=== PATIENT | male | born 1965 | race Caucasian/White ===

== ENCOUNTER → 2017-07-19 | Outpatient (CLI) | payer OTHER | LOC: FCPNEURO 23:18 | PROVIDERS: ATTEND Psychiatry & Neurology Sleep Medicine | DX: G47.33 Obstructive sleep apnea (adult) (pediatric) (principal); G47.61 Periodic limb movement disorder; I49.5 Sick sinus syndrome ==

== ENCOUNTER 2017-08-08 06:24 | Observation (INO) | payer OTHER ==
--- NOTE | 2017-08-08 06:37 | CPEKG ---
Heart Rate: 71 RR Interval: 845 P-R Interval: 216 QRSD Interval: 86 QT Interval: 408 QTC Interval: 444 P [place]: 83 QRS [place]: 56 T Wave [place]: 30 EKG Severity - ABNORMAL ECG - EKG Impression: SINUS RHYTHM EKG Impression: FIRST DEGREE AV BLOCK Electronically Signed By: Ronald Brown 08-Aug-2017 08:02:44
--- NOTE | 2017-08-08 07:04 | EDPHY ---
H & P Time Seen by Provider: 08/08/17 06:59 HPI/ROS: Chief complaint. Chest pain HPI. 51-year-old male presents to emergency department with chest discomfort. He has recently been diagnosed with sick sinus syndrome on a sleep apnea study and was diagnosed with first-degree AV block and heart rate down into the 30s at night. He wakes at night at about 3:00 a.m. with chest tightness and heart pounding. He is unable to sleep secondary to this. He then feels tired during the day and then if he lies down for a nap in the afternoon he has further symptoms. He describes as heavy feeling in mid chest radiating to neck and left arm. While he has had the symptoms for a while symptoms have been worse the last 4-5 days. Really only occurs at night or with Welch. However he does have nausea and he has lightheaded. His symptoms are not worse with exertion or breathing. He has no sense of shortness of breath. No recent fever or cough. No unusual leg symptoms or recent travel. He has have septal surgery to help with his sleep apnea and CPAP ROS Constitutional. no fever/chills, no weakness Eyes. no problems with vision ENT. no sore throat, no nasal drainage Cardiovascular. Chest pressure Respiratory. no shortness of breath, no cough Abdominal. No abdominal pain but nausea . no problems urinating MS. no calf pain/swelling, no neck/back pain, no joint pain Skin. no rash Lymph. no swollen glands Neuro. Dizziness Past Medical/Surgical History: Past medical history significant for recently diagnosed sick sinus syndrome, sleep apnea using CPAP. Septoplasty Mom has coronary artery disease Social History: , nonsmoker, no alcohol Smoking Status: Never smoked Physical Exam: General Appearance: Alert well-developed male mild distress vital signs are stable Eyes: Pupils equal and round no pallor or injection. ENT, Mouth: Mucous membranes are moist. Respiratory: There are no retractions, lungs are clear to auscultation. Cardiovascular: Regular rate and rhythm. Gastrointestinal: Abdomen is soft and nontender, no masses, bowel sounds normal. Neurological: Awake and alert, sensory and motor exams grossly normal. Skin: Warm and dry, no rashes. Musculoskeletal: Neck is supple nontender. Extremities symmetrical, full range of motion. Psychiatric: Patient is oriented X 3, there is no agitation. Constitutional: Initial Vital Signs Temperature (C) 36.8 C 08/08/17 06:27 Heart Rate 65 08/08/17 06:27 Respiratory Rate 20 08/08/17 06:27 Blood Pressure 150/86 H 08/08/17 06:27 O2 Sat (%) 95 08/08/17 06:27 O2 Delivery Mode Room Air Allergies/Adverse Reactions: No Known Allergies Allergy (Unverified 08/08/17 08:31) Home Medications: Medication Instructions Recorded NK [No Known Home Meds] 08/08/17 Medical Decision Making - Diagnostics EKG Interpretation: EKG interpreted by me shows normal sinus rhythm with first-degree AV block. Normal axis. QRS is normal there is no significant ST elevation or depression. There is no arrhythmia. The rate is 71 Imaging Results: Imaging Impressions Chest X-Ray 08/08/17 07:04 Impression: Negative. One-view chest x-ray interpreted by me is normal Procedures: IV normal saline, monitor ED Course/Re-evaluation: Re-evaluation 8:15 a.m. patient is stable. The patient, his and I discussed imaging, EKG, lab results. We discussed treatment plan including recommendation for admission for further evaluation. They expressed understanding and agreement I consulted discussed case with Dr. mc Jenkins, hospitalist, who agrees to the admission I consulted and discussed the case with Dr. Davis, cardiology, who will see the patient in consultation Differential Diagnosis: Patient is having chest discomfort at night with palpitations lightheadedness and nausea. I am concerned about acute coronary syndrome. He was recently diagnosed with sick sinus syndrome and has recommendation for pacemaker. No evidence for pneumonia or pneumothorax. - Data Points Laboratory Results: Laboratory Results 08/08/17 06:38 08/08/17 06:38 08/08/17 08/08/17 06:38 06:38 WBC 5.08 10^3/uL 10^3/uL (3.80-9.50) RBC 4.74 10^6/uL 10^6/uL (4.40-6.38) Hgb 14.8 g/dL g/dL (13.7-17.5) Hct 44.1 % % (40.0-51.0) MCV 93.0 fL fL (81.5-99.8) MCH 31.2 pg pg (27.9-34.1) MCHC 33.6 g/dL g/dL (32.4-36.7) RDW 11.9 % % (11.5-15.2) Plt Count 222 10^3/uL 10^3/uL (150-400) MPV 10.9 fL fL (8.7-11.7) Neut % (Auto) 64.7 % % (39.3-74.2) Lymph % (Auto) 25.8 % % (15.0-45.0) Meigs % (Auto) 7.5 % % (4.5-13.0) Eos % (Auto) 1.0 % % (0.6-7.6) Baso % (Auto) 0.8 % % (0.3-1.7) Nucleat RBC Rel Count 0.0 % % (0.0-0.2) Absolute Neuts (auto) 3.29 10^3/uL 10^3/uL (1.70-6.50) Absolute Lymphs (auto) 1.31 10^3/uL 10^3/uL (1.00-3.00) Absolute Monos (auto) 0.38 10^3/uL 10^3/uL (0.30-0.80) Absolute Eos (auto) 0.05 10^3/uL 10^3/uL (0.03-0.40) Absolute Basos (auto) 0.04 10^3/uL 10^3/uL (0.02-0.10) Absolute Nucleated RBC 0.00 10^3/uL 10^3/uL (0-0.01) Immature Gran % 0.2 % % (0.0-1.1) Immature Gran # 0.01 10^3/uL 10^3/uL (0.00-0.10) Sodium 141 mEq/L mEq/L (134-144) Potassium 4.0 mEq/L mEq/L (3.5-5.2) Chloride 105 mEq/L mEq/L (97-110) Carbon Dioxide 24 mEq/l mEq/l (22-31) Anion Gap 12 mEq/L mEq/L (8-16) BUN 22 mg/dL mg/dL (7-23) Creatinine 0.8 mg/dL mg/dL (0.7-1.3) Estimated GFR > 60 Glucose 84 mg/dL mg/dL (70-100) Calcium 9.4 mg/dL mg/dL (8.5-10.4) Troponin I < 0.012 ng/mL ng/mL (0.000-0.034) Departure - Departure Disposition: [facility] Inpatient Acute Clinical Impression: Chest pain Qualifiers: Chest pain type: unspecified Qualified Code(s): R07.9 - Chest pain, unspecified Condition: Fair Referrals: YAHAIRA WALKER [Other] - As per Instructions
[2017-08-08 07:09] LABS: % IMMATURE GRANULYOCYTES 0.2 % (0.0-1.1); ABSOLUTE IMMATURE GRANULOCYTES 0.01 10^3/uL (0.00-0.10); ADD DIFF? NO; ADD MORPH? NO; ADD SCAN? NO; ATYPICAL LYMPHOCYTE FLAG 0 (0-99); FRAGMENT RBC FLAG 0 (0-99); HEMATOCRIT 44.1 % (40.0-51.0); HEMOGLOBIN 14.8 g/dL (13.7-17.5); LEFT SHIFT FLG 0 (0-99); LIPEMIA HEMOLYSIS FLAG 80 (0-99); MEAN CELL HEMOGLOBIN 31.2 pg (27.9-34.1); MEAN CELL HEMOGLOBIN CONCENTR. 33.6 g/dL (32.4-36.7); MEAN PLATELET VOLUME 10.9 fL (8.7-11.7); PLATELET CLUMPS FLAG 0 (0-99); PLATELET COUNT 222 10^3/uL (150-400); RED BLOOD CELL COUNT 4.74 10^6/uL (4.40-6.38); RED CELL DISTRIBUTION WIDTH 11.9 % (11.5-15.2)
[2017-08-08 07:15] LABS: ANION GAP 12 mEq/L (8-16); CALCIUM 9.4 mg/dL (8.5-10.4); CARBON DIOXIDE 24 mEq/l (22-31); CHLORIDE 105 mEq/L (97-110); CREATININE 0.8 mg/dL (0.7-1.3); GLOMERULAR FILTRATION RATE > 60; GLUCOSE 84 mg/dL (70-100); SODIUM 141 mEq/L (134-144)
[2017-08-08 07:27] LABS: TROPONIN I < 0.012 ng/mL (0.000-0.034)
[2017-08-08] MEDS ORDERED: ONDANSETRON 4 MG/2 ML VIAL IVP PRN (08:34)
[2017-08-08] MEDS ORDERED: ACETAMINOPHEN 325 MG TAB PO PRN (08:34)
[2017-08-08] MEDS ORDERED: ONDANSETRON DISINTEGRATING 4 MG TAB PO PRN (08:34)
[2017-08-08] MEDS: PANTOPRAZOLE SODIUM 40 MG TAB PO SCH (11:56)
--- NOTE | 2017-08-08 12:33 | ASMTCMCOM ---
CM Note CM Note Notes: Chart reviewed, Patient should have no needs at discharge. CM available to follow should needs arise. Date Signed: 08/08/2017 12:32 PM Electronically Signed By:Yen Dubois RN
--- NOTE | 2017-08-08 13:53 | ECHO ---
[email or web address] [address] [address] Main: [phone] Fax: Transthoracic Echocardiogram Name: RAMON SONG MR#: [id number] Study Date: 08/08/2017 Study Time: 11:15 AM Date of : 1965 Age: 51 year(s) Height: 188 cm (74 in.) Weight: 79.38 kg (175 lb.) BSA: 2.05 m2 Gender: Male Examination: Echo Indication: Chest Pain Image Quality: Contrast: Requested by: Yoly Lynch BP: 134 mmHg/83 mmHg Heart Rate: Rhythm: Indication: Chest Pain Procedure Staff Glass Worker: Nathalia Daley Reading Physician: Mike Davis Requesting Provider: Conclusions: Normal size left ventricle. The ejection fraction is estimated to be 60-65 %. The right atrium is mildly dilated. The mitral valve is normal in appearance. Trivial mitral valve regurgitation. The aortic valve is tri-leaflet. Normal aortic valve function. The pulmonary artery pressure could not be adequately estimated. Measurements: Chambers Valvular Assessment AV/MV Valvular Assessment TV/PV Normal Normal Normal Name Value Range Name Value Range Name Value Range Ao Mikayla (MM): 3.5 cm (2.2 cm-3.7 AV Vmax: 1.19 m/s (1 m/s-1.7 cm) m/s) IVSd (2D): 1.2 cm (0.6 cm-1.1 AV maxP mmHg ( - ) cm) MV E Vmax: 0.56 m/s ( - ) LVDd (2D): 4.9 cm (4.2 cm-5.9 MV A Vmax: 0.38 m/s ( - ) cm) MV E/A: 1.47 ( - ) LVDs (2D): 3.4 cm (2.1 cm-4 cm) LVPWd (2D): 1.0 cm (0.6 cm-1 cm) LVEF (MOD4): 70 % (>=55 %) EF Range: 60-65 % Continued Measurements: Chambers Valvular Assessment AV/MV Name Value Name Value Patient: RAMON SONG Study Date: 08/08/2017 Page 1 of 2 11:15 AM LADs: 3.7 cm MV E/E' Septal: 6.10 LADs Lon.5 cm MV E/E' Lateral: 4.60 LA Area: 14.5 cm2 Findings: Left Ventricle: Normal size left ventricle. Normal global systolic LV function. The ejection fraction is estimated to be 60-65 %. Right Ventricle: Normal size right ventricle. Left Atrium: The left atrium is normal in size. Right Atrium: The right atrium is mildly dilated. Mitral Valve: The mitral valve is normal in appearance. Trivial mitral valve regurgitation. Aortic Valve: The aortic valve is tri-leaflet. Normal aortic valve function. Tricuspid Valve: The tricuspid valve appears normal. Mild tricuspid regurgitation is present. Pulmonic Valve: The pulmonic valve is normal in appearance. Pericardium: No pericardial effusion. (No Signature Object) Patient: RAMON SONG Study Date: 08/08/2017 Page 2 of 2 11:15 AM [id number]
--- NOTE | 2017-08-08 14:46 | GCON ---
[f rep st] CONSULTATION DATE OF CONSULTATION: 08/08/2017 CHIEF COMPLAINT: I have been asked by Dr. Brown to evaluate this patient with a chief complaint of palpitations. HISTORY OF PRESENT ILLNESS: Patient is a 51-year-old gentleman with limited past medical history, wh o presents with a chief complaint of palpitations. Patient was in his usual state of health until ap proximately 3 years prior to admission when he began to experience episodes of palpitations. Patient reports he would fall asleep and sleep for approximately 3-4 hours when he would wake up with a forc eful beating of his heart. The forceful beating of his heart was associated with some discomfort in his upper chest extending up into his neck. When he palpates his pulse, he notices that it feels lik e a skipped beat. Patient would be able to fall back to sleep and would experience subsequent episod es. His symptoms have continued intermittently since this time. Patient remains active, exercising 3 times a week for approximately 1 hour each time. Patient denies symptoms of chest pain or signific ant dyspnea with this activity. Three years ago, he underwent a cardiology evaluation for his sympto ms. Workup at that time included an echocardiogram, stress test, and Holter monitor. Workup was unr emarkable per report; however, patient was told to get a sleep study done and look for sleep apnea. At that time, he did have a sleep study which was positive, and patient did undergo therapy with the CPAP machine. Recently he underwent a repeat sleep study demonstrating no significant obstructive sl eep apnea; however, patient was noted to have some variation in his heart rate. During sleep raising concern for potential sick sinus syndrome as well as premature junctional complexes. We have been c onsulted to help in the further management of this patient. Patient denies a history of hypertension , hyperlipidemia, tobacco use, or early family history of coronary artery disease. He remains modera tely active as noted above without symptoms other than his nocturnal episodes. PAST MEDICAL HISTORY: 1. Obstructive sleep apnea. 2. Status post septoplasty. MEDICATIONS: None. ALLERGIES: No known drug allergies. 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 He does not smoke. He denies problems with alcoh ol. FAMILY HISTORY: Notable for coronary artery disease at a later age of onset. REVIEW OF SYSTEMS: 10-point review of systems is negative, except as noted in HPI. PHYSICAL EXAMINATION: GENERAL: Patient is resting comfortably in bed. He does not appear to be in acute distress. VITAL SIGNS: Temperature afebrile, pulse is 54, blood pressure 134/83, respiratory rate is 18, SaO2 is 93% on room air. HEENT: Normocephalic, atraumatic. Extraocular muscles intact. NECK: No JVD. No bruits. LUNGS: Clear to auscultation bilaterally. CARDIOVASCULAR: Regular ra te and rhythm. S1, S2. No murmurs, rubs, or gallops appreciated. ABDOMEN: Soft, nontender. Normo active bowel sounds. EXTREMITIES: No clubbing, cyanosis, or edema. SKIN: No evidence of rash. NE URO: Patient awake, alert, and oriented x3. LABORATORY: White blood cell count 5.08, hemoglobin 14.8, hematocrit 44.1, platelet count is 222. S odium 141, potassium 4.0, chloride 105, CO2 of 24, BUN 22, creatinine 0.8. Troponin within normal li mits x1. EKG demonstrates sinus rhythm, normal axis, 1st degree AV block, with a MI interval of 216, no signif icant ST or T-wave changes. ASSESSMENT AND PLAN: The patient is a 51-year-old gentleman with: 1. Obstructive sleep apnea. Patient has a history of obstructive sleep apnea. He started CPAP ther apy approximately 3 years ago. He recently discontinued CPAP therapy after his most recent sleep laurence dy. We will plan on reviewing the sleep study with Pulmonary to see if further treatment is necessar y. 2. Palpitations. Patient reports a 3 year history of palpitations awakening him from sleep. Palpita tions are described as a skipped or forceful beating of his heart. These are certainly suggestive of premature beats which was noted on his most recent sleep study. Will plan on obtaining his previous cardiovascular evaluation from Dr. Talavera that was done 3 years ago. We will also plan on trying t o obtain rhythm strips from his most recent sleep study to see if we can correlate these with his sub sequent symptoms. In the mean time, we will plan on monitoring patient on telemetry monitoring. /[id number]/MODL
--- NOTE | 2017-08-08 16:17 | GHP ---
[f rep st] HISTORY AND PHYSICAL DATE OF ADMISSION: 08/08/2017 CHIEF COMPLAINT: Chest pain. HISTORY OF PRESENT ILLNESS: This is a 51-year-old male with limited past medical history, to justin diamond diagnosed sleep apnea using CPAP at home, who presents with several episodes of chest pain associ ated with strong heartbeats that wake him up at night. Patient was undergoing outpatient polysomnogr aphy by Dr. Guadarrama and was told that he had what looked to be sick sinus syndrome on his EKG and was recommended to follow with Cardiology. He has scheduled the appointment but not seen the cardiologi st. 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 Patient reports that thi s is associated with some shortness of breath. Those symptoms will resolve if the patient rises and ambulates or exerts himself in any way. If the patient were to lay down in the middle of the day and take a nap, these symptoms would again recur, again being resolved by rising and ambulating. Patien t denies any nausea or vomiting. Denies diaphoresis, is quite active and can exercise without limita tion otherwise. PAST MEDICAL HISTORY: 1. Sleep apnea status post septal surgery last year for sleep apnea. 2. BPH status post surgical revision. SOCIAL HISTORY: Negative for tobacco, alcohol or illicit drugs. FAMILY HISTORY: Notable for heart disease in the mother but later in life. REVIEW OF SYSTEMS: A 10-point review of systems is negative with the exception of that reported in t he HPI. PHYSICAL EXAMINATION: VITAL SIGNS: Blood pressure 134/84, heart rate 54, respiratory rate 18, 93% o n room air, 36.8. GENERAL: This is a very healthy-appearing 51-year-old male in no acute distress. HEENT: Notable for moist mucous membranes. Eye exam is negative for any icterus. CARDIAC: Patient is regular rate and rhythm. No murmurs, gallops, or rubs. PULMONARY: Good respiratory effort. Blayne ar to auscultation bilaterally. GASTROINTESTINAL: Positive bowel sounds. ABDOMEN: Soft. MUSCULOSK ELETAL: Negative for any lower extremity edema. SKIN: Negative for any rashes. NEUROLOGIC: Patient is alert and oriented x3. PSYCHIATRIC: He is pleasant and cooperative on interview and examination. DATA: EKG, which I personally reviewed and interpreted, shows sinus rhythm, normal axis 1st degree A V block. Otherwise, no acute ST-T changes. Troponin is less than 0.012. CBC and BMP are normal. ASSESSMENT AND PLAN: This is a 51-year-old male presenting with chest pain. 1. Acute chest pain. The story is a little unusual for cardiac ischemia as the patient's pain is re lieved with exertion. Query whether the patient's symptoms are related to unusual dysrhythmia with P VCs or extended pauses with strong beats following, otherwise from his gastrointestinal symptoms such as gastroesophageal reflux disease or reflux. Will admit the patient for serial troponins and watch the patient closely on telemetry to further understand his recent diagnosis of sick sinus syndrome. I have ordered a transthoracic echocardiogram for evaluation of his intracardiac and pulmonic pressu res and Cardiology has been consulted from the emergency department. 2. Benign prostatic hypertrophy. Patient has no active symptoms and does not take medications. 3. Sleep apnea. Patient was told that he does not have sleep apnea and was instructed to discontinu e his use of CPAP after his most recent visit with Dr. Guadarrama. We will attempt to get the records f rom that visit to better understand patient's sleep physiology. 4. Prophylaxis with Lovenox. DIET: Cardiac. DISPOSITION: I expect in less than 2 midnights if the patient rules out overnight and appropriate di agnostic workup completed by Cardiology. I have discussed the case with the emergency room physician and patient will be triaged to the O for cardiac monitoring and care. /[id number]/MODL
[2017-08-08 19:54] VITALS: RESP 16
[2017-08-09 07:44] VITALS: TEMP 98.1
[2017-08-09] MEDS: PANTOPRAZOLE SODIUM 40 MG TAB PO SCH (08:02)
--- NOTE | 2017-08-09 09:16 | CPEKG ---
Heart Rate: 78 RR Interval: 769 QRSD Interval: 84 QT Interval: 388 QTC Interval: 442 QRS [place]: 72 T Wave [place]: -32 EKG Severity - ABNORMAL ECG - EKG Impression: ATRIAL FLUTTER, A-RATE 312 Electronically Signed By: Jean Paul Ye 09-Aug-2017 10:43:09
[2017-08-09] MEDS ORDERED: REGADENOSON 0.4 MG/5 ML SYR IVP ONE (09:46)
--- NOTE | 2017-08-09 11:13 | CPR ---
[f rep st] NONINVASIVE CARDIAC PROCEDURE REPORT DATE OF PROCEDURE: 08/09/2017 ORDERING PHYSICIAN: Yoly Lynch MD PROCEDURE: Lexiscan nuclear stress test. He had slight chest discomfort during an episode of atrial flutter just prior to testing. this was d iscussed with Dr. Davis before we initiated the test. Resting EKG shows atrial flutter with a ventricular rate of 78, atrial rate of 312. Watching on we observed him to go back into his regular sinus rhythm at a rate of 78. He had slight chest di scomfort while in atrial flutter; this subsided once he was in regular sinus rhythm. Resting blood p ressure 136/83, oxygen saturation 96% at rest, and intermittent atrial flutter. Once in regular sinu s rhythm, his baseline rate was 50. LEXISCAN PORTION: Lexiscan was injected rapidly, followed by saline flush. Cardiolite was then inje cted, followed by saline flush, heart rate 126 and regular, oxygen saturation 97%. He did flush and feel slight shortness of breath and chest heaviness with the injection. RECOVERY: His symptoms dissipated spontaneously during recovery. Blood pressure 146/90, oxygen satu ration 96%, and heart rate 90 and regular. He has no chest pain or shortness of breath at conclusion of test. At this time, he currently is stable for nuclear imaging. /[id number]/MODL
[2017-08-09 11:51] VITALS: BP 135/79; PULSE 67; O2SAT 95
--- NOTE | 2017-08-09 15:19 | PDCARCONS ---
Cardiology Consult Reason for Consult: Electrophysiology consultation for atrial flutter Chief Complaint: atrial flutter Requesting Physician: Dr. Mike Davis, Dr. Yoly Lynch History of Present Illness: 51-year-old male who has been complaining of palpitations for approximately 4- 5 years. Episodes are increasing in frequency. These are associated with chest discomfort, fatigue and decreased exercise tolerance. His arrhythmias often wake him up at night. He was admitted yesterday with similar symptoms. He had atrial flutter this morning which was documented on 12 lead EKG, this correlated with his symptoms that he has been reporting for the last 5 years. He has not had syncope. 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 He does not have chest discomfort with exertion. History Information - Allergies/Home Medication List Allergies/Adverse Reactions: No Known Allergies Allergy (Unverified 08/08/17 08:31) Home Medications: NK [No Known Home Meds] 08/08/17 [Last Taken Unknown] I have personally reviewed and updated: family history, medical history, social history, surgical history Past Medical History: - Past Medical History no pertinent PMH Additional medical history: sleep apnea - Social History Smoking Status: Never smoked Alcohol Use: Occasionally Drug Use: None Physical Exam Physical Exam: Temp Pulse Resp BP Pulse Ox 36.7 C 67 16 135/79 H 95 08/09/17 07:41 08/09/17 11:50 08/09/17 11:50 08/09/17 11:50 08/09/17 11:50 Constitutional: no apparent distress, appears nourished, not in pain Eyes: PERRL, EOMI Ears, Nose, Mouth, Throat: moist mucous membranes, hearing normal Cardiovascular: regular rate and rhythym, no murmur, rub, or gallop Respiratory: no respiratory distress, no rales or rhonchi Gastrointestinal: normoactive bowel sounds, soft, non-tender abdomen Skin: warm, normal color Neurologic: AAOx3 Psychiatric: interacting appropriately, not anxious, not encephalopathic Lab and Imaging 08/08/17 06:38 08/08/17 06:38 WBC 5.08 10^3/uL (3.80-9.50) 08/08/17 06:38 RBC 4.74 10^6/uL (4.40-6.38) 08/08/17 06:38 Hgb 14.8 g/dL (13.7-17.5) 08/08/17 06:38 Hct 44.1 % (40.0-51.0) 08/08/17 06:38 MCV 93.0 fL (81.5-99.8) 08/08/17 06:38 MCH 31.2 pg (27.9-34.1) 08/08/17 06:38 MCHC 33.6 g/dL (32.4-36.7) 08/08/17 06:38 RDW 11.9 % (11.5-15.2) 08/08/17 06:38 Plt Count 222 10^3/uL (150-400) 08/08/17 06:38 MPV 10.9 fL (8.7-11.7) 08/08/17 06:38 Neut % (Auto) 64.7 % (39.3-74.2) 08/08/17 06:38 Lymph % (Auto) 25.8 % (15.0-45.0) 08/08/17 06:38 [place] % (Auto) 7.5 % (4.5-13.0) 08/08/17 06:38 Eos % (Auto) 1.0 % (0.6-7.6) 08/08/17 06:38 Baso % (Auto) 0.8 % (0.3-1.7) 08/08/17 06:38 Nucleat RBC Rel Count 0.0 % (0.0-0.2) 08/08/17 06:38 Absolute Neuts (auto) 3.29 10^3/uL (1.70-6.50) 08/08/17 06:38 Absolute Lymphs (auto) 1.31 10^3/uL (1.00-3.00) 08/08/17 06:38 Absolute Monos (auto) 0.38 10^3/uL (0.30-0.80) 08/08/17 06:38 Absolute Eos (auto) 0.05 10^3/uL (0.03-0.40) 08/08/17 06:38 Absolute Basos (auto) 0.04 10^3/uL (0.02-0.10) 08/08/17 06:38 Absolute Nucleated RBC 0.00 10^3/uL (0-0.01) 08/08/17 06:38 Immature Gran % 0.2 % (0.0-1.1) 08/08/17 06:38 Immature Gran # 0.01 10^3/uL (0.00-0.10) 08/08/17 06:38 Sodium 141 mEq/L (134-144) 08/08/17 06:38 Potassium 4.0 mEq/L (3.5-5.2) 08/08/17 06:38 Chloride 105 mEq/L (97-110) 08/08/17 06:38 Carbon Dioxide 24 mEq/l (22-31) 08/08/17 06:38 Anion Gap 12 mEq/L (8-16) 08/08/17 06:38 BUN 22 mg/dL (7-23) 08/08/17 06:38 Creatinine 0.8 mg/dL (0.7-1.3) 08/08/17 06:38 Estimated GFR > 60 08/08/17 06:38 Glucose 84 mg/dL (70-100) 08/08/17 06:38 Calcium 9.4 mg/dL (8.5-10.4) 08/08/17 06:38 Troponin I < 0.012 ng/mL (0.000-0.034) 08/08/17 12:34 Visualized and Interpreted EKG results: Yes EKG additional interpertation: Atrial flutter Telemetry: sinus rhythm with intermittent atrial flutter Echocardiogram: normal LV function, mild tricuspid regurgitation A/P Assessment: 1. Atrial flutter 2. Chest discomfort associated with atrial flutter - normal myocardial perfusion stress test Plan: 51-year-old male with atrial flutter that corresponds with symptoms of palpitations and chest discomfort. Left ventricular ejection fraction is normal without any significant wall motion abnormalities. He had a myocardial perfusion stress test today that was reported as normal. Have reviewed his EKG that is consistent with atrial flutter. Atrial flutter was also seen on telemetry monitoring since admission. Currently he is in normal sinus rhythm. [id number] Score is 0, aspirin is adequate for anticoagulation. Does have relative bradycardia at night. We discussed 3 options for treatment- 1. Wait and watch without any treatment, if atrial flutter becomes persistent perform p.r.n. cardioversion 2. Antiarrhythmic drug therapy for atrial flutter, this is effective in 30-40% of patients 3. Ablation procedure. Given his frequent and severe symptoms, he would like to proceed with an ablation procedure. This is scheduled for next Tuesday. Risks of the procedure including , mi, CVA, cardiac tamponade requiring emergent heart surgery, DVT, pulmonary embolism, complete heart block with need for subsequent permanent pacing, vascular access complications, infection and anesthesia related complications were discussed with him and his . All the questions were answered. My nurse will give him preprocedure instructions prior to discharge. Have discussed by phone with Dr. Yoly Lynch and Dr. Mike Davis. Complex discussion, 1 hour spent with patient, more than 50% of which was counseling.
--- NOTE | 2017-08-09 16:01 | ASDISCHSUM ---
Discharge Information Plan Status:Home with No Needs Medically Cleared to Leave:08/09/2017 Discharge Date:08/09/2017 03:46 PM CM D/C Disposition:Home, Routine, Self-Care ADT D/C Disposition:Home, Routine, Self-Care Projected Discharge Date:08/09/2017 03:46 PM Transportation at D/C:Self Discharge Delay Reason: Follow-Up Date:08/09/2017 03:46 PM Discharge Slot: Final Diagnosis: Placement Information Patient Contact Information Contact Name:SPEEDY Relationship: Address:[address] [place] [address] Work Phone: City:[place] Alternate Phone: [facility]/Zip Code:[place] [address] Email: Financial Information Financial Class:[facility] Primary Plan Desc:[employer] OPEN ACC LOCAL Primary Plan Number:[id number] Secondary Plan Desc: Secondary Plan Number: Assessment Information [facility] CM Progress Note CM Note CM Note Notes: Chart reviewed, Patient should have no needs at discharge. CM available to follow should needs arise. Date Signed: 08/08/2017 12:32 PM Electronically Signed By:Yen Dubois RN Intervention Information
--- NOTE | 2017-08-09 16:29 | GDS ---
[f rep st] DISCHARGE SUMMARY DISCHARGE DIAGNOSES: Include: 1. Chest pain. 2. Atrial flutter, new diagnosis. HISTORY OF PRESENT ILLNESS: This is a 51-year-old male with no significant past medical history, pre sents with a sensation of chest pain, pressure that awakes him at night. Please reference the Histor y and Physical for details of the patient's initial presentation. CONSULTANTS: Include Cardiology. PROCEDURES: On 08/09/2017, patient had a myocardial perfusion scan which was negative for any induci ble ischemia. On 08/08/2017, the patient had a transthoracic echocardiogram that showed normal eject ion fraction with no segmental wall motion abnormalities. HOSPITAL COURSE BY ISSUE: Chest pain. The patient was monitored on telemetry and found to have an a ssociation between his symptoms and dysrhythmia that he would develop on telemetry monitoring. He wa s ruled out for ischemic causes of dysrhythmia with a stress test, and was seen by Dr. Ye. Plans ar e for cardiac ablation on 08/15/2017. The patient will be discharged without any new medications, in structed to follow per instructions for Dr. Ye for ablation. MEDICATIONS AT THE TIME OF DISPOSITION: Please reference med rec printed on 08/09/2017. FOLLOWUP APPOINTMENTS: Include with Dr. Ye for ablation on 08/15. PENDING STUDIES: At the time of this dictation, are none. TIME SPENT: I spent greater than 30 minutes in the planning and coordination of this discharge. /[id number]/MODL
== END 2017-08-09 15:46 | disposition home or self-care (01) ==
LOC: INTOOBSV 08:29 → F2W 10:30
PROVIDERS: ADMIT Hospitalist; ATTEND Hospitalist
DX: R07.9 Chest pain, unspecified (principal); I48.92 Unspecified atrial flutter; G47.33 Obstructive sleep apnea (adult) (pediatric)
CPT/HCPCS: A9500; G0378; J2785

== ENCOUNTER 2017-08-15 10:59 | Observation (INO) | payer OTHER ==
[2017-08-15] MEDS ORDERED: NS 1,000 ML IV ONE (11:11)
--- NOTE | 2017-08-15 11:24 | CPEKG ---
Heart Rate: 54 RR Interval: 1111 P-R Interval: 204 QRSD Interval: 84 QT Interval: 424 QTC Interval: 402 P [place]: 78 QRS [place]: 65 T Wave [place]: 31 EKG Severity - NORMAL ECG - EKG Impression: SINUS RHYTHM Electronically Signed By: Jean Paul Ye 15-Aug-2017 17:56:10
[2017-08-15 11:33] LABS: % IMMATURE GRANULYOCYTES 0.2 % (0.0-1.1); ABSOLUTE IMMATURE GRANULOCYTES 0.01 10^3/uL (0.00-0.10); ADD DIFF? NO; ADD MORPH? NO; ADD SCAN? NO; ATYPICAL LYMPHOCYTE FLAG 0 (0-99); FRAGMENT RBC FLAG 0 (0-99); HEMATOCRIT 44.7 % (40.0-51.0); HEMOGLOBIN 15.3 g/dL (13.7-17.5); LEFT SHIFT FLG 0 (0-99); LIPEMIA HEMOLYSIS FLAG 90 (0-99); MEAN CELL HEMOGLOBIN 31.6 pg (27.9-34.1); MEAN CELL HEMOGLOBIN CONCENTR. 34.2 g/dL (32.4-36.7); MEAN CELL VOLUME 92.4 fL (81.5-99.8); MEAN PLATELET VOLUME 10.4 fL (8.7-11.7); PLATELET CLUMPS FLAG 0 (0-99); PLATELET COUNT 211 10^3/uL (150-400); RED BLOOD CELL COUNT 4.84 10^6/uL (4.40-6.38); RED CELL DISTRIBUTION WIDTH 11.8 % (11.5-15.2)
[2017-08-15 11:42] LABS: INR 1.05 (0.83-1.16); PROTIME(PATIENT) 13.6 SEC (12.0-15.0)
[2017-08-15] MEDS ORDERED: HEPARIN 10,000 UNIT/10 ML MDV ONE (11:45)
[2017-08-15] MEDS ORDERED: BUPIVACAINE 0.5% 30 ML SDV ONE (11:45)
[2017-08-15] MEDS ORDERED: ISOPROTERENOL HCL/D5W 0.2 MG/50 ML BAG IV ONE (11:45)
[2017-08-15] MEDS ORDERED: LIDOCAINE 1% 300 MG/30 ML SDV ONE (11:45)
--- NOTE | 2017-08-15 11:52 | PDHPUP ---
History & Physical Update H&P update statement: This history and physical update is based on an assessment of the patient which was completed after admission or registration (within 24 hours), but prior to the surgery/procedure. H&P update: H&P reviewed & patient examined, no change in patient's condition since H&P completed
[2017-08-15 11:59] LABS: ANION GAP 11 mEq/L (8-16); CALCIUM 9.3 mg/dL (8.5-10.4); CARBON DIOXIDE 24 mEq/l (22-31); CHLORIDE 103 mEq/L (97-110); CREATININE 0.9 mg/dL (0.7-1.3); GLOMERULAR FILTRATION RATE > 60; GLUCOSE 85 mg/dL (70-100); MAGNESIUM 1.9 mg/dL (1.6-2.3); POTASSIUM 4.2 mEq/L (3.5-5.2); SODIUM 138 mEq/L (134-144)
--- NOTE | 2017-08-15 12:36 | PDANEPAE ---
ANE History of Present Illness 51 yo male with A flutter. ANE Past Medical History - Cardiovascular History Hx Hypertension: No Hx Chest Pain: No Hx Coronary Artery / Peripheral Vascular Disease: No - Pulmonary History Hx Oxygen in Use at Home: No Hx Sleep Apnea: No Pulmonary History Comment: Sleep study showed no PRETTY, just bradycardia. - Endocrine History Hx Diabetes: No Hypothyroid: No - Renal History Hx Renal Disorders: Yes Renal History Comment: h/o BPH s/p TURP (prior to TURP, had urinary retention after septoplasty) - Liver History Hx Hepatic Disorders: No - GI History Hx Gastrointestinal Disorders: No - Chronic Pain History Chronic Pain: No ANE Review of Systems Review of Systems: +sinus congestion/ slight non-productive cough over weekend, now resolved. - Exercise capacity METS (RN): 4 METS - Systems EENMT: Reports: nose congestion (this past weekend) Genitourinary: Reports: no symptoms ANE Patient History - Allergies Allergies/Adverse Reactions: No Known Allergies Allergy (Unverified 08/08/17 08:31) - Home Medications Home Medications: NK [No Known Home Meds] 08/08/17 [Last Taken Unknown] - NPO status NPO Status: no food or drink >8 hours - Anes Hx Anes Hx: no prior problems - Smoking Hx Smoking Status: Never smoked - Alcohol Use Alcohol Use: Rarely (1-2 / week) ANE Labs/Vital Signs - Labs Result Diagrams: 08/15/17 11:20 08/15/17 11:20 - Vital Signs Vital Signs: reviewed preoperatively; see RN documention for details Height: 185.42 cm Weight: 77.111 kg ANE Physical Exam - Airway Neck exam: FROM Mallampati Score: Class 2 Mouth exam: normal dental/mouth exam - Pulmonary Pulmonary: clear to auscultation - Cardiovascular Cardiovascular: bradycardia - ASA Status ASA Status: II ANE Anesthesia Plan Anesthesia Plan: general endotracheal anesthesia
[2017-08-15] MEDS ORDERED: DEXAMETHASONE 4 MG/ML VIAL ONE (12:46)
[2017-08-15] MEDS ORDERED: fentaNYL 100 MCG/2 ML INJ ONE (12:46)
[2017-08-15] MEDS ORDERED: ROCURONIUM 100 MG/10 ML VIAL ONE (12:46)
[2017-08-15] MEDS ORDERED: PROPOFOL/EMULSION 500 MG/50 ML BOTTLE IV ONE (12:46)
[2017-08-15] MEDS ORDERED: LIDOCAINE 2% 5 ML SDV ONE (12:46)
[2017-08-15] MEDS ORDERED: ONDANSETRON 4 MG/2 ML VIAL ONE (14:11)
[2017-08-15] MEDS ORDERED: SUGAMMADEX SODIUM 200 MG/2 ML VIAL IVP ONE (15:30)
[2017-08-15] MEDS ORDERED: PROMETHAZINE HCL 25 MG/ML INJ IVP PRN (15:58)
[2017-08-15] MEDS ORDERED: NALOXONE HCL 0.4 MG/ML INJ IVP PRN (15:58)
[2017-08-15] MEDS ORDERED: ALBUTEROL 3 ML DEYVIAL IH PRN (15:58)
--- NOTE | 2017-08-15 15:59 | POSTANESTH ---
Post Anesthetic Evaluation Cardiovascular Status: Normal, Stable Respiratory Status: Normal, Stable Level of Consciousness/Mental Status: Can Participate in Eval, Mildly Sleepy, Arousable Pain Control: Adequate, Prn Tx Ordered Nausea/Vomiting Control: Adequate, Prn Tx Ordered Complications Possibly Related to Anesthesia: None Noted
[2017-08-15] MEDS ORDERED: ATROPINE SULFATE 1 MG/10 ML SYR ONE (16:03)
--- NOTE | 2017-08-15 16:47 | CPEKG ---
Heart Rate: 63 RR Interval: 952 P-R Interval: 192 QRSD Interval: 98 QT Interval: 424 QTC Interval: 435 P [place]: 83 QRS [place]: 64 T Wave [place]: 21 EKG Severity - NORMAL ECG - EKG Impression: SINUS RHYTHM Electronically Signed By: Jean Paul Ye 15-Aug-2017 17:56:04
[2017-08-15] MEDS: ACETAMINOPHEN 325 MG TAB PO PRN (16:49)
[2017-08-15 17:09] LABS: ANION GAP 6 mEq/L (8-16); CALCIUM 8.9 mg/dL (8.5-10.4); CARBON DIOXIDE 25 mEq/l (22-31); CHLORIDE 104 mEq/L (97-110); GLOMERULAR FILTRATION RATE > 60; GLUCOSE 99 mg/dL (70-100); POTASSIUM 4.5 mEq/L (3.5-5.2); SODIUM 135 mEq/L (134-144)
--- NOTE | 2017-08-15 17:38 | EPPROC ---
Electrophysiology Procedure Note: ELECTROPHYSIOLOGIC STUDY AND CATHETER MEDIATED ABLATION FOR SUBEUSTACHIAN ISTHMUS DEPENDENT COUNTERCLOCKWISE ATRIAL FLUTTER: INDICATION: Recurrent atrial flutter Chest pain with atrial flutter PROCEDURES PERFORMED: 56565-77 EP evaluation with RA/RV/LA pace/record, with arrhythmia induction 37398-47 EP evaluation with RA/RV pace record, insert/reposition catheter, with arrhythmia induction 79852 SVT ablation 97905 3D mapping Fluoroscopy Catheters & Anesthesia: The patient arrived in the Electrophysiology Laboratory in the fasting state. The right clavicular region, right groin, and left groin area were prepped and draped in the usual sterile manner. Anesthesiologist administered general anesthesia. Appropriate non-invasive blood pressure, pulse oximetry and end- tidal CO2 monitoring was established. All catheters were placed percutaneously using the modified Seldinger technique , and advanced into position under fluoroscopic guidance. One #7 Finnish deflectable octapolar electrode catheter was advanced to the His-bundle position via the left femoral vein and then placed in the coronary sinus. One #7 Finnish deflectable catheter with 10 pairs of electrodes was placed via the left femoral vein into the coronary sinus. One # 7 Finnish Halo catheter was inserted through the right femoral vein and was placed at the tricuspid annulus. Heparin was administered to keep ACT > 200 seconds. Programmed stimulation was performed from the right atrium, coronary sinus ( left atrium) and right ventricle. Parahisian pacing demonstrated all retrograde conduction over the AV node. There was no antegrade AV adams slow pathway. On arrival to the Electrophysiology Laboratory the patient was in sinus rhythm. Atrial flutter, CL 230 ms was easily induced by CS pacing. Entrainment mapping from lateral TA, septal TA, proximal CS and distal CS confirmed cavotricuspid isthmus dependent atrial flutter. In preparation for ablation of typical atrial flutter, a high-resolution 3D (3 dimensional) Carto electroanatomical map of the sub-Eustachian isthmus and right atrium was obtained during pacing of the posterolateral coronary sinus. For ablation of typical atrial flutter, one Agilis sheath was placed in the right atrium. A #8 Finnish deflectable quadrapolar electrode catheter (2mm-5mm- 2mm spacing) with 8 mm irrigated tip electrode and location sensor for the menuvox mapping system was inserted in the long sheath and advanced to the right atrium. Radiofrequency applications were applied between the tricuspid annulus at 0630 oclock as seen in the CZECH view and the inferior vena cava. This achieved conduction block across the isthmus. The CT isthmus and the heart were vertically oriented. No atrial arrhythmias were inducible post ablation. Post ablation, a high-resolution electroanatomical map of the sub-Eustachian isthmus was obtained during pacing of the posterolateral coronary sinus. This confirmed conduction block across the sub-Eustachian isthmus. Bidirectional block was also confirmed by pacing. The catheters were removed. Long sheath was changed to short sheath. Protamine was administered. The patient was transferred to the cardiovascular holding area in stable condition. Vascular access sheaths were removed in the holding area. There were no apparent complications. CONCLUSIONS: 1. Cavotricuspid isthmus dependent counterclockwise atrial flutter. 2. Successful catheter mediated ablation of cavotricuspid isthmus achieving bi -directional conduction block across cavotricuspid isthmus. 3. No atrial arrhythmias inducible post ablation. 4. No apparent complications. Patient Problems: Problems Problem Status Onset Atrial flutter Acute Chest pain Acute
[2017-08-16 05:32] LABS: % IMMATURE GRANULYOCYTES 0.3 % (0.0-1.1); ABSOLUTE IMMATURE GRANULOCYTES 0.02 10^3/uL (0.00-0.10); ADD DIFF? NO; ADD MORPH? NO; ADD SCAN? NO; ATYPICAL LYMPHOCYTE FLAG 0 (0-99); FRAGMENT RBC FLAG 0 (0-99); HEMATOCRIT 39.4 % (40.0-51.0); HEMOGLOBIN 13.6 g/dL (13.7-17.5); LEFT SHIFT FLG 0 (0-99); LIPEMIA HEMOLYSIS FLAG 90 (0-99); MEAN CELL HEMOGLOBIN 31.9 pg (27.9-34.1); MEAN CELL HEMOGLOBIN CONCENTR. 34.5 g/dL (32.4-36.7); MEAN CELL VOLUME 92.3 fL (81.5-99.8); MEAN PLATELET VOLUME 11.1 fL (8.7-11.7); PLATELET CLUMPS FLAG 0 (0-99); PLATELET COUNT 224 10^3/uL (150-400); RED BLOOD CELL COUNT 4.27 10^6/uL (4.40-6.38); RED CELL DISTRIBUTION WIDTH 11.7 % (11.5-15.2)
[2017-08-16 05:44] LABS: INR 1.11 (0.83-1.16); PROTIME(PATIENT) 14.2 SEC (12.0-15.0)
[2017-08-16] MEDS: ACETAMINOPHEN 325 MG TAB PO PRN (06:16)
[2017-08-16 06:56] LABS: ANION GAP 9 mEq/L (8-16); CALCIUM 8.8 mg/dL (8.5-10.4); CARBON DIOXIDE 21 mEq/l (22-31); CHLORIDE 105 mEq/L (97-110); CREATININE 0.8 mg/dL (0.7-1.3); GLOMERULAR FILTRATION RATE > 60; GLUCOSE 93 mg/dL (70-100); POTASSIUM 4.2 mEq/L (3.5-5.2); SODIUM 135 mEq/L (134-144)
[2017-08-16 07:05] LABS: CREATINE KINASE-MB FRACTION 1.95 ng/mL (0.00-3.19); TROPONIN I 0.334 ng/mL (0.000-0.034)
--- NOTE | 2017-08-16 08:56 | CPEKG ---
Heart Rate: 58 RR Interval: 1034 P-R Interval: 212 QRSD Interval: 88 QT Interval: 432 QTC Interval: 425 P [place]: 84 QRS [place]: 71 T Wave [place]: 38 EKG Severity - ABNORMAL ECG - EKG Impression: SINUS RHYTHM EKG Impression: FIRST DEGREE AV BLOCK EKG Impression: ST ELEVATION SUGGESTS PERICARDITIS Electronically Signed By: Jean Paul Ye 16-Aug-2017 20:14:28
[2017-08-16] MEDS ORDERED: ASPIRIN 81 MG CHEWABLE TAB PO SCH (09:00)
--- NOTE | 2017-08-16 09:12 | ECHO ---
[email or web address] [address] [address] Main: [phone] Fax: Transthoracic Echocardiogram Name: RAMON SONG MR#: [id number] Study Date: 08/16/2017 Study Time: 07:58 AM Date of : 1965 Age: 52 year(s) Height: ( ) Weight: ( ) BSA: Gender: Male Examination: Echo Indication: F/U post EP study Image Quality: Contrast: Requested by: Jean Paul Ye BP: 112 mmHg/67 mmHg Heart Rate: Rhythm: Indication: F/U post EP study Procedure Staff Director Of Content And Programming: Nathalia Enriquez Physician: Jean Paul Ye Requesting Provider: Conclusions: Normal global systolic LV function. EF is 73 %. The right atrium is borderline dilated. Mild tricuspid regurgitation is present. The pulmonary artery pressure is normal. Measurements: Chambers Valvular Assessment AV/MV Valvular Assessment TV/PV Normal Normal Normal Name Value Range Name Value Range Name Value Range Ao Mikayla (MM): 3.7 cm (2.2 cm-3.7 AV Vmax: 1.17 m/s (1 m/s-1.7 TR Vmax: 2.39 mm/s ( - ) cm) m/s) TR PGmax: 23 mmHg ( - ) IVSd (2D): 0.7 cm (0.6 cm-1.1 AV maxP mmHg ( - ) syst. PAP: 28 mmHg ( - ) cm) MV E Vmax: 0.58 m/s ( - ) LVDd (2D): 5.4 cm (4.2 cm-5.9 MV A Vmax: 0.56 m/s ( - ) cm) MV E/A: 1.04 ( - ) LVDs (2D): 3.5 cm (2.1 cm-4 cm) LVPWd (2D): 0.9 cm (0.6 cm-1 cm) LVEF (MOD4): 73 % (>=55 %) Continued Measurements: Chambers Valvular Assessment AV/MV Valvular Assessment TV/PV Name Value Name Value Name Value LADs: 3.4 cm MV E/E' Septal: 5.30 CVP (est.): 5 mmHg LADs Lon.3 cm MV E/E' Lateral: 4.20 LA Area: 19.6 cm2 Patient: RAMON SONG Study Date: 08/16/2017 Page 1 of 2 07:58 AM Findings: Left Ventricle: Normal size left ventricle. Normal global systolic LV function. EF is 73 %. No regional wall motion abnormality. Right Ventricle: Normal size right ventricle. Left Atrium: The left atrium is normal in size. Right Atrium: The right atrium is borderline dilated. Mitral Valve: The mitral valve is normal in appearance. Trivial mitral valve regurgitation. Aortic Valve: The aortic valve is tri-leaflet and functions normally. Tricuspid Valve: The tricuspid valve appears normal. Mild tricuspid regurgitation is present. The pulmonary artery pressure is normal. Pulmonic Valve: The pulmonic valve is normal in appearance and function. Pericardium: No pericardial effusion. (No Signature Object) Patient: RAMON SONG Study Date: 08/16/2017 Page 2 of 2 07:58 AM [id number]
[2017-08-16 11:24] VITALS: BP 138/78; PULSE 55; RESP 16; TEMP 98.1; O2SAT 94
--- NOTE | 2017-08-16 12:09 | ASDISCHSUM ---
Discharge Information Plan Status:Home with No Needs Medically Cleared to Leave:08/16/2017 Discharge Date:08/16/2017 11:57 AM CM D/C Disposition:Home, Routine, Self-Care ADT D/C Disposition:Home, Routine, Self-Care Projected Discharge Date:08/16/2017 12:00 AM Transportation at D/C:Family Discharge Delay Reason: Follow-Up Date:08/16/2017 12:00 AM Discharge Slot: Final Diagnosis: Placement Information Patient Contact Information Contact Name:SPEEDY Relationship: Address:[address] [place] [address] Work Phone: City:[place] Alternate Phone: [facility]/Zip Code:[place] [address] Email: Financial Information Financial Class:[facility] [employer] Primary Plan Desc:[employer] HMO OPEN ACC LOCAL Primary Plan Number:[id number] Secondary Plan Desc: Secondary Plan Number: Assessment Information Intervention Information
--- NOTE | 2017-08-17 04:06 | GDS ---
[f rep st] DISCHARGE SUMMARY DISCHARGE DIAGNOSIS: Atrial flutter, status post ablation. BRIEF HISTORY: This is a 52-year-old man who presented to the emergency room on August 08 with symptoms of chest pain and palpitations, and was found to have atrial flutter. He did have a nuclear stress test done at that time that was negative for ischemia or prior infarct. His chest pain occurred in the setting of his arrhythmia. He was scheduled to have atrial flutter ablation on August 15. He had experienced palpitations for 4-5 years which were increasing in frequency and were associated with chest discomfort, fatigue, and decreased exercise tolerance. HOSPITAL COURSE: Dr. Ye performed a successful ablation of the cavotricuspid isthmus, achieving bidirectional conduction block across the cavotricuspid isthmus. There were no inducible atrial arrhythmias post ablation. Patient reports having chest discomfort overnight. He says it is a little different than prior symptoms. He reports it is worse if he is lying on his left side. It has decreased throughout the night, although he still does have some this morning. He denies any increased pain with exertion or inspiration. He also reports a sensation in his throat that is associated with extrasystole heard on exam and seen on telemetry. He denies any shortness of breath or pain or bleeding at his groin sites. TESTING DONE: Echocardiogram demonstrates normal ejection fraction at 73% and no wall motion abnormalities. There is mild TR and no pericardial effusion. EKG demonstrates normal sinus rhythm without significant ST/T-wave changes from his baseline. LABORATORY DATA: WBC 7.79, hemoglobin 13.6, hematocrit is 39.4, platelets are 224. PT is 14.2, INR is 1.1. Sodium 135, potassium 4.2, chloride 105, bicarb 21, BUN 22, creatinine is 0.8. CK 96, CK-MB 1.95. Troponin is 0.334 which is elevated and to be expected post ablation. PHYSICAL EXAMINATION: VITAL SIGNS: Blood pressure is 114/66, pulse is 57, respirations 18, temperature is 36.6, O2 saturation on room air is 96%. GENERAL : He is alert and oriented, in no acute distress, lying in bed. CARDIAC: Regular rhythm with occasional extrasystole. No murmur, rub, or gallop. LUNGS : Clear to auscultation. ABDOMEN: Soft and nontender. Groin sites are without hematoma or ecchymosis. EXTREMITIES: Legs are warm. No discoloration. No lower extremity edema. Bilateral +2 pedal pulses. DISCHARGE MEDICATIONS: He will take 81 mg aspirin for 6 weeks post ablation. He can also take ibuprofen 600 mg q.4-6 hours as needed for chest discomfort for the next few days. DISCHARGE INSTRUCTIONS: He will call us if his chest discomfort does not decrease over the next day. He was given verbal and written activity restrictions, including no lifting over 10 pounds or vigorous activity for the next week. 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 He will call if he notes any hematoma at his groin site. FOLLOWUP: He has a followup with Dr. Ye on September 15 at 2:45. /[id number]/MODL MTDD
== END 2017-08-16 11:57 | disposition home or self-care (01) ==
LOC: FSGY 10:59 → F2W 15:58
PROVIDERS: ADMIT Internal Medicine Cardiovascular Disease; ATTEND Internal Medicine Cardiovascular Disease
PROC: 5A1213Z Performance of Cardiac Pacing, Intermittent (ICD-10-PCS; principal; 2017-08-15)
PROC: 4A023FZ Measurement of Cardiac Rhythm, Percutaneous Approach (ICD-10-PCS; principal; 2017-08-15)
PROC: 02583ZZ Destruction of Conduction Mechanism, Percutaneous Approach (ICD-10-PCS; principal; 2017-08-15)
PROC: B245ZZZ Ultrasonography of Left Heart (ICD-10-PCS; principal; 2017-08-15)
PROC: 02K83ZZ Map Conduction Mechanism, Percutaneous Approach (ICD-10-PCS; principal; 2017-08-15)
DX: I48.92 Unspecified atrial flutter (principal); R07.9 Chest pain, unspecified; R00.1 Bradycardia, unspecified
CPT/HCPCS: 93005; 93306; 93613; 93621; 93653; G0378; C1731; C1732; C1766; J0461; J1100; J1644; J2405; J2704; J3010